=== PATIENT | female | born 1995 | race Caucasian/White ===

== ENCOUNTER → 2024-10-08 | Outpatient (CLI) | payer OTHER | LOC: M RAD 10:55 | PROVIDERS: ATTEND Physician Assistant | DX: S93.401A Sprain of unspecified ligament of right ankle, initial encounter (principal) ==

== ENCOUNTER → 2025-03-06 | Outpatient (CLI) | payer OTHER | LOC: M PLARAD 14:48 | PROVIDERS: ATTEND Physician Assistant | DX: S92.024D Nondisplaced fracture of anterior process of right calcaneus, subsequent encounter for fracture with routine healing (principal); X58.XXXD Exposure to other specified factors, subsequent encounter ==